=== PATIENT | female | born 1960 | race Caucasian/White ===

== ENCOUNTER 2017-09-06 15:47 | Emergency (ER) | payer OTHER ==
[~2017-09-06] VITALS: Ht 157.5 cm; Wt 60.8 kg
[2017-09-06 16:30] VITALS: Ht 157.5 cm; Wt 60.8 kg
[2017-09-06 20:00] VITALS: BP 93/60
== END 2017-09-06 20:00 | disposition home or self-care (01) ==
LOC: ED 15:47
DX: J40 Bronchitis, not specified as acute or chronic (principal); B34.9 Viral infection, unspecified
CPT/HCPCS: J1885; J7613; J7644